=== PATIENT | female | born 1950 | race Caucasian/White ===

== ENCOUNTER → 2017-02-28 | Outpatient (CLI) | payer OTHER | END | disposition home or self-care (01) | LOC: PPH VACUNA 09:24 | DX: Z23 Encounter for immunization (principal) ==

== ENCOUNTER 2017-04-27 10:11 | Outpatient (CLI) | payer OTHER | END 2017-04-27 10:46 | disposition home or self-care (01) | LOC: LAB 10:11 | DX: D50.8 Other iron deficiency anemias (principal); I10 Essential (primary) hypertension; N39.0 Urinary tract infection, site not specified; D68.8 Other specified coagulation defects; E03.8 Other specified hypothyroidism; E08.11 Diabetes mellitus due to underlying condition with ketoacidosis with coma; D63.1 Anemia in chronic kidney disease; N18.3 Chronic kidney disease, stage 3 (moderate); C90.00 Multiple myeloma not having achieved remission; D47.2 Monoclonal gammopathy; M10.9 Gout, unspecified; E11.9 Type 2 diabetes mellitus without complications; E78.2 Mixed hyperlipidemia; M05.50 Rheumatoid polyneuropathy with rheumatoid arthritis of unspecified site ==

== ENCOUNTER 2017-05-11 11:26 | Outpatient (CLI) | payer OTHER | END 2017-05-11 11:33 | disposition home or self-care (01) | LOC: LAB 11:26 | DX: D72.828 Other elevated white blood cell count (principal) ==

== ENCOUNTER 2017-06-15 09:43 | Outpatient (CLI) | payer OTHER | END 2017-06-15 09:52 | disposition home or self-care (01) | LOC: NUCLEAR 09:43 | DX: M06.4 Inflammatory polyarthropathy (principal) | CPT/HCPCS: 78315; A9503 ==

== ENCOUNTER 2017-07-18 06:39 | Outpatient (CLI) | payer OTHER | END 2017-07-18 06:45 | disposition home or self-care (01) | LOC: LAB 06:39 | DX: I10 Essential (primary) hypertension (principal); E11.9 Type 2 diabetes mellitus without complications; E78.2 Mixed hyperlipidemia; M18.0 Bilateral primary osteoarthritis of first carpometacarpal joints ==

== ENCOUNTER 2017-07-27 10:18 | Outpatient (CLI) | payer OTHER | END 2017-07-27 10:21 | disposition home or self-care (01) | LOC: RAD 10:18 | DX: I11.9 Hypertensive heart disease without heart failure (principal) ==

== ENCOUNTER → 2017-07-27 | Outpatient (CLI) | payer OTHER | END | disposition home or self-care (01) | LOC: LAB 09:55 | DX: D68.8 Other specified coagulation defects (principal) ==

== ENCOUNTER 2018-04-24 07:35 | Outpatient (CLI) | payer OTHER | END 2018-04-24 07:40 | disposition home or self-care (01) | LOC: RAD 07:35 | DX: Z96.653 Presence of artificial knee joint, bilateral (principal) ==

== ENCOUNTER 2018-04-24 08:18 | Outpatient (CLI) | payer OTHER | END 2018-04-24 10:57 | disposition home or self-care (01) | LOC: MAMO-SONO 08:18 | DX: Z12.31 Encounter for screening mammogram for malignant neoplasm of breast (principal); Z87.898 Personal history of other specified conditions; N60.21 Fibroadenosis of right breast; N60.22 Fibroadenosis of left breast ==

== ENCOUNTER → 2018-05-15 | Outpatient (CLI) | payer OTHER | END | disposition home or self-care (01) | LOC: NUCLEAR 05-03 14:00 | DX: M81.0 Age-related osteoporosis without current pathological fracture (principal) ==

== ENCOUNTER 2018-07-17 09:34 | Outpatient (CLI) | payer OTHER | END 2018-07-17 17:00 | disposition home or self-care (01) | LOC: TOM 09:34 | DX: R06.02 Shortness of breath (principal); R05 Cough ==

== ENCOUNTER 2020-02-28 | Outpatient (CLI) | payer OTHER | END 2020-02-28 00:01 | disposition home or self-care (01) | LOC: PPH VACUNA | PROVIDERS: ATTEND Emergency Medicine Pediatric Emergency Medicine | DX: Z23 Encounter for immunization (principal) ==